=== PATIENT | male | born 1985 | race Caucasian/White ===

== ENCOUNTER 2022-01-24 20:01 | Inpatient (IN) | payer OTHER, BC ==
[~2022-01-24 20:01] MED LIST: Iopamidol-370 76% 500 ML 1 ML ONE
[2022-01-24] MEDS ORDERED: Ondansetron PF 4 MG/2 ML Vial ONE (20:06)
[2022-01-24] MEDS ORDERED: FENTANYL 50 MCG/ML 1 ML VIAL ONE ×2 (20:06→21:16)
[2022-01-24] MEDS ORDERED: Ketamine 50 MG/ML (10ML VIAL) ONE (20:14)
[2022-01-24] MEDS ORDERED: Naloxone HCl 2 mg/2 ml Syringe ONE (20:22)
[2022-01-24] MEDS ORDERED: Naloxone HCl 0.4 mg/ml Vial ONE (20:23)
[2022-01-24 20:49] LABS: #Basophils 0.1 thou/uL (0.0-0.2); #Eosinphils 0.4 thou/uL (0.0-0.7); #Lymphocytes 2.8 thou/uL (1.20-3.40); #Neutrophils 10.1 thou/uL (1.40-6.50); %Basophils 0.7 % (0.0-1.0); %Eosinophils 2.8 % (0.0-10.0); %Lymphocytes 19.5 % (21.0-51.0); %Monocytes 6.6 % (0.0-10.0); %Neutrophils 70.3 % (42.0-75.0); Hemoglobin 14.1 g/dL (14.0-18.0); Mean Corpuscular HGB CONC 33.4 g/dL (32.0-36.0); Mean Corpuscular Hemoglobin 30.7 pg (27.0-31.0); Mean Corpuscular Volume 91.8 fl (78.0-98.0); Mean Platelet Volume 7.4 fL (7.4-10.4); Platelet Count 314 10x3/uL (130-400); RBC Distribution Width 11.5 % (11.5-14.5); Red Blood Cell (RBC) Count 4.61 mill/uL (4.70-6.10); White Blood Cell (WBC) Count 14.3 10x3/uL (4.8-10.8)
[2022-01-24 20:56] LABS: Prothrombin Time 13.3 sec (12.0-14.7)
[2022-01-24 20:57] LABS: PTT 28.7 sec (22.9-36.1)
[2022-01-24 21:10] LABS: ALT (SGPT) 67 U/L (8-55); AST (SGOT) 38 U/L (5-34); Albumin 4.4 g/dL (3.5-5.0); Alkaline Phosphatase 51 U/L (40-110); Anion Gap 14 mmol/L (10-20); BUN (Urea Nitrogen) 10 mg/dL (8.9-20.6); Bilirubin, Total 0.5 mg/dL (0.2-1.2); Calc. Creatinine Clearance 0 mL/min (70-130); Calcium 8.4 mg/dL (7.8-10.44); Carbon Dioxide 22 mmol/L (22-29); Chloride 106 mmol/L (98-107); Estimated GFR 108; Globulin 2.6 g/dL (2.4-3.5); Glucose 115 mg/dL (70-105); Potassium 3.6 mmol/L (3.5-5.1); Sodium 138 mmol/L (136-145)
[2022-01-24] MEDS ORDERED: Cyclobenzaprine 10 MG TAB ONE (21:17)
[2022-01-24] MEDS ORDERED: Dextrose 5% in Water 1,000 ML IV PRN (21:53)
[2022-01-24] MEDS ORDERED: Dextrose 50% Abboject 50 ML SYRINGE SLOW IVP PRN (21:53)
[2022-01-24] MEDS ORDERED: Ondansetron ODT 4 MG TAB PO PRN (21:53)
[2022-01-24] MEDS ORDERED: Morphine 2 MG/ML VIAL SLOW IVP PRN (21:53)
[2022-01-24] MEDS ORDERED: Ondansetron PF 4 MG/2 ML Vial IVP PRN (21:53)
[2022-01-24] MEDS ORDERED: hydrALAZINE 20 MG/ML VIAL SLOW IVP PRN (21:53)
[2022-01-24] MEDS ORDERED: Ketorolac Tromethamine 30 MG/ML VIAL ONE (22:18)
[2022-01-24] MEDS ORDERED: traMADol HCl 50 MG TAB ONE (22:18)
[2022-01-24 22:20] LABS: SARS-CoV-2 NAA Rapid Test Not Detected (NotDetected)
[2022-01-24 22:38] LABS: Bacteria/HPF None Seen HPF (None Seen); Bilirubin Negative (Negative); Blood, Urine Trace (Negative); Clarity Clear (Clear); Glucose, Urine (Dipstick) Normal (Negative); Ketone, Urine Negative (Negative); Leukocyte Negative Leu/uL (Negative); Nitrite Negative (Negative); Protein, Urine (Dipstick) Negative (Neg-Trace); RBC/HPF 0-3 HPF (0-3); Specific Gravity, Urine 1.017 (1.002-1.036); Squamous Epithelial None Seen HPF (0-3); Urobilinogen Normal mg/dL (Less than 2); WBC/HPF 0-3 HPF (0-3)
[2022-01-24 23:52] VITALS: BMI 21.8
[2022-01-25] MEDS ORDERED: Morphine 4 MG/ML VIAL ONE (00:14)
[2022-01-25] MEDS ORDERED: Gabapentin 100 MG CAP PO SCH ×2 (00:45→06:00)
[2022-01-25] MEDS ORDERED: Ketorolac Tromethamine 30 MG/ML VIAL IVP SCH ×2 (00:45→06:00)
[2022-01-25] MEDS ORDERED: traMADol HCl 50 MG TAB PO SCH (00:45)
[2022-01-25] MEDS: Morphine 4 MG/ML VIAL SLOW IVP PRN ×2 (00:48→05:20)
[2022-01-25] MEDS: Acetaminophen 325 MG TAB PO SCH ×2 (01:34→04:47)
[2022-01-25] MEDS: Sodium Chloride 0.9% 1,000 ML IV SCH ×3 (01:38→15:07)
[2022-01-25] MEDS: traMADol HCl 50 MG TAB PO SCH ×3 (05:19→17:01)
[2022-01-25] MEDS: Cyclobenzaprine 10 MG TAB PO PRN ×2 (05:35→21:12)
[2022-01-25 05:45] LABS: #Eosinphils 0.1 thou/uL (0.0-0.7); #Lymphocytes 1.4 thou/uL (1.20-3.40); #Monocytes 1.2 thou/uL (0.11-0.59); %Basophils 0.3 % (0.0-1.0); %Eosinophils 0.6 % (0.0-10.0); %Neutrophils 77.2 % (42.0-75.0); Hemoglobin 13.5 g/dL (14.0-18.0); Mean Corpuscular HGB CONC 32.8 g/dL (32.0-36.0); Mean Corpuscular Hemoglobin 30.8 pg (27.0-31.0); Mean Corpuscular Volume 93.8 fl (78.0-98.0); Mean Platelet Volume 7.8 fL (7.4-10.4); Platelet Count 232 10x3/uL (130-400); RBC Distribution Width 11.7 % (11.5-14.5); Red Blood Cell (RBC) Count 4.39 mill/uL (4.70-6.10); White Blood Cell (WBC) Count 11.7 10x3/uL (4.8-10.8)
[2022-01-25 06:18] LABS: Anion Gap 14 mmol/L (10-20); BUN (Urea Nitrogen) 10 mg/dL (8.9-20.6); Calc. Creatinine Clearance 130 mL/min (70-130); Calcium 8.6 mg/dL (7.8-10.44); Carbon Dioxide 24 mmol/L (22-29); Chloride 100 mmol/L (98-107); Estimated GFR 117; Glucose 114 mg/dL (70-105); Magnesium 1.6 mg/dL (1.6-2.6); Phosphorus 4.6 mg/dL (2.3-4.7); Sodium 134 mmol/L (136-145)
[2022-01-25] MEDS ORDERED: CEFAZOLIN 2 GM in Sodium Chloride 0.9% 100 ML IVPB SCH (07:45)
[2022-01-25] MEDS ORDERED: Morphine 4 MG/ML VIAL SLOW IVP PRN (07:53)
[2022-01-25] MEDS ORDERED: Magnesium 2 GM/50 ML(in water) 2 GM in Premix Bag 1 BAG IVPB SCH ×2 (08:00→20:00)
[2022-01-25] MEDS ORDERED: Famotidine/PF 20 mg/2ml Vial ONE (08:23)
[2022-01-25] MEDS ORDERED: Promethazine HCl 25 MG/ML VIAL IVPB PRN ×2 (08:26→12:01)
[2022-01-25] MEDS ORDERED: Ondansetron HCl/PF 4 MG/2 ML Vial IVP PRN ×2 (08:26→12:01)
[2022-01-25] MEDS ORDERED: Promethazine HCl 25 MG/ML VIAL IM PRN ×2 (08:26→12:01)
[2022-01-25] MEDS ORDERED: fentaNYL PF 100 MCG/2 ML SYRINGE ONE ×2 (08:35→11:26)
[2022-01-25] MEDS ORDERED: Midazolam HCl 2 mg/2 ml Vial ONE (08:47)
[2022-01-25] MEDS ORDERED: CEFAZOLIN 2 GM VIAL ONE (08:55)
[2022-01-25] MEDS ORDERED: Sodium Chloride 0.9% 100 ML ONE (08:55)
[2022-01-25] MEDS ORDERED: Phenylephrine 10 MG/ML VIAL ONE (09:15)
[2022-01-25] MEDS ORDERED: PROPOFOL 200 MG/20 ML VIAL ONE (09:15)
[2022-01-25] MEDS ORDERED: Rocuronium Bromide 10 MG/ML (10ML VIAL) ONE (09:15)
[2022-01-25] MEDS ORDERED: Dexamethasone 20 MG/5 ML VIAL ONE (09:15)
[2022-01-25] MEDS ORDERED: Ketorolac Tromethamine 30 MG/ML VIAL ONE (09:15)
[2022-01-25] MEDS ORDERED: Ondansetron PF 4 MG/2 ML Vial ONE (09:15)
[2022-01-25] MEDS ORDERED: NEOSTIGMINE 3 MG/3 ML SYR 3 MG/3 ML SYRINGE ONE (09:15)
[2022-01-25] MEDS: Famotidine 20 MG TAB PO SCH ×2 (09:43→21:01)
[2022-01-25] MEDS: Polyethylene Glycol 3350 17 GM Packet PO SCH (09:43)
[2022-01-25] MEDS: Senokot S 8.6-50 MG TAB PO SCH ×2 (09:43→21:01)
[2022-01-25] MEDS: Acetaminophen 500 MG TAB PO SCH ×3 (09:43→21:01)
[2022-01-25] MEDS ORDERED: Meperidine HCl/PF 25 MG/ML VIAL SLOW IVP PRN (12:01)
[2022-01-25] MEDS ORDERED: FENTANYL 50 MCG/ML 1 ML VIAL ONE (12:22)
[2022-01-25] MEDS: Gabapentin 300 MG CAP PO SCH ×2 (14:52→21:01)
[2022-01-25 16:50] LABS: #Lymphocytes 0.8 thou/uL (1.20-3.40); #Monocytes 0.8 thou/uL (0.11-0.59); #Neutrophils 8.7 thou/uL (1.40-6.50); %Basophils 0.1 % (0.0-1.0); %Eosinophils 0.2 % (0.0-10.0); %Lymphocytes 7.4 % (21.0-51.0); %Monocytes 7.9 % (0.0-10.0); %Neutrophils 84.3 % (42.0-75.0); Hemoglobin 11.2 g/dL (14.0-18.0); Mean Corpuscular HGB CONC 34.4 g/dL (32.0-36.0); Mean Corpuscular Hemoglobin 31.2 pg (27.0-31.0); Mean Corpuscular Volume 90.7 fl (78.0-98.0); Mean Platelet Volume 7.3 fL (7.4-10.4); Platelet Count 236 10x3/uL (130-400); RBC Distribution Width 11.4 % (11.5-14.5); Red Blood Cell (RBC) Count 3.61 mill/uL (4.70-6.10); White Blood Cell (WBC) Count 10.4 10x3/uL (4.8-10.8)
[2022-01-25 16:57] LABS: INR-International Normal Ratio 1.1; PTT 31.7 sec (22.9-36.1); Prothrombin Time 14.3 sec (12.0-14.7)
[2022-01-25] MEDS: CEFAZOLIN 2 GM in Sodium Chloride 0.9% 100 ML IVPB SCH (17:03)
[2022-01-25 17:11] LABS: Anion Gap 14 mmol/L (10-20); BUN (Urea Nitrogen) 10 mg/dL (8.9-20.6); Calc. Creatinine Clearance 131 mL/min (70-130); Calcium 8.2 mg/dL (7.8-10.44); Carbon Dioxide 21 mmol/L (22-29); Chloride 104 mmol/L (98-107); Estimated GFR 117; Glucose 131 mg/dL (70-105); Lactic Acid 4.1 mmol/L (0.5-2.2); Magnesium 1.6 mg/dL (1.6-2.6); Phosphorus 2.6 mg/dL (2.3-4.7); Sodium 135 mmol/L (136-145)
[2022-01-25] MEDS ORDERED: Sodium Phosphate 30 MMOL in Sodium Chloride 0.9% 250 ML 250 ML IVPB SCH (18:00)
[2022-01-25] MEDS ORDERED: Lactated Ringer's 1,000 ML IV SCH (18:15)
[2022-01-26] MEDS: traMADol HCl 50 MG TAB PO SCH ×4 (00:58→18:13)
[2022-01-26] MEDS: CEFAZOLIN 2 GM in Sodium Chloride 0.9% 100 ML IVPB SCH (00:59)
[2022-01-26] MEDS: Acetaminophen 500 MG TAB PO SCH ×4 (00:59→20:54)
[2022-01-26] MEDS: Gabapentin 300 MG CAP PO SCH ×3 (05:23→20:55)
[2022-01-26 06:15] LABS: #Eosinphils 0.1 thou/uL (0.0-0.7); #Lymphocytes 1.8 thou/uL (1.20-3.40); #Monocytes 0.8 thou/uL (0.11-0.59); #Neutrophils 5.3 thou/uL (1.40-6.50); %Basophils 0.6 % (0.0-1.0); %Eosinophils 1.7 % (0.0-10.0); %Lymphocytes 22.1 % (21.0-51.0); %Monocytes 9.5 % (0.0-10.0); %Neutrophils 66.2 % (42.0-75.0); Hemoglobin 9.3 g/dL (14.0-18.0); Mean Corpuscular HGB CONC 33.9 g/dL (32.0-36.0); Mean Corpuscular Hemoglobin 31.2 pg (27.0-31.0); Mean Corpuscular Volume 92.2 fl (78.0-98.0); Mean Platelet Volume 7.3 fL (7.4-10.4); Platelet Count 205 10x3/uL (130-400); RBC Distribution Width 11.4 % (11.5-14.5); Red Blood Cell (RBC) Count 2.99 mill/uL (4.70-6.10); White Blood Cell (WBC) Count 8.1 10x3/uL (4.8-10.8)
[2022-01-26 06:23] LABS: Lactic Acid 3.6 mmol/L (0.5-2.2)
[2022-01-26 06:36] LABS: Anion Gap 14 mmol/L (10-20); BUN (Urea Nitrogen) 10 mg/dL (8.9-20.6); Calc. Creatinine Clearance 115 mL/min (70-130); Calcium 7.8 mg/dL (7.8-10.44); Carbon Dioxide 24 mmol/L (22-29); Chloride 102 mmol/L (98-107); Estimated GFR 106; Glucose 114 mg/dL (70-105); Magnesium 2.2 mg/dL (1.6-2.6); Phosphorus 2.8 mg/dL (2.3-4.7); Potassium 3.5 mmol/L (3.5-5.1); Sodium 136 mmol/L (136-145)
[2022-01-26] MEDS ORDERED: Lactated Ringer's 1,000 ML IV SCH (07:45)
[2022-01-26] MEDS ORDERED: Potassium Phosphate 15 MMOL in Sodium Chloride 0.9% 250 ML 250 ML IVPB SCH (08:00)
[2022-01-26] MEDS: Senokot S 8.6-50 MG TAB PO SCH ×2 (08:48→20:55)
[2022-01-26] MEDS: Polyethylene Glycol 3350 17 GM Packet PO SCH (08:48)
[2022-01-26] MEDS: Famotidine 20 MG TAB PO SCH ×2 (08:48→20:55)
[2022-01-26] MEDS: Lactated Ringer's 1,000 ML IV SCH (14:35)
[2022-01-26] MEDS: Ferrous Sulfate 325 MG TAB PO SCH (18:14)
[2022-01-26] MEDS: Ascorbic Acid 500 mg Chewable Tablet PO SCH (18:14)
[2022-01-27] MEDS: Lactated Ringer's 1,000 ML IV SCH ×2 (00:35→08:15)
[2022-01-27] MEDS: traMADol HCl 50 MG TAB PO SCH ×2 (00:35→05:19)
[2022-01-27] MEDS: Acetaminophen 500 MG TAB PO SCH ×3 (01:18→23:26)
[2022-01-27] MEDS: Gabapentin 300 MG CAP PO SCH (05:19)
[2022-01-27 06:48] LABS: #Eosinphils 0.1 thou/uL (0.0-0.7); #Lymphocytes 0.8 thou/uL (1.20-3.40); #Monocytes 0.9 thou/uL (0.11-0.59); #Neutrophils 7.2 thou/uL (1.40-6.50); %Basophils 0.5 % (0.0-1.0); %Eosinophils 1.2 % (0.0-10.0); %Lymphocytes 8.9 % (21.0-51.0); %Monocytes 9.9 % (0.0-10.0); %Neutrophils 79.5 % (42.0-75.0); Hemoglobin 7.8 g/dL (14.0-18.0); Mean Corpuscular HGB CONC 34.1 g/dL (32.0-36.0); Mean Corpuscular Hemoglobin 31.5 pg (27.0-31.0); Mean Corpuscular Volume 92.6 fl (78.0-98.0); Mean Platelet Volume 7.3 fL (7.4-10.4); Platelet Count 185 10x3/uL (130-400); RBC Distribution Width 11.3 % (11.5-14.5); Red Blood Cell (RBC) Count 2.47 mill/uL (4.70-6.10)
[2022-01-27 07:03] LABS: Lactic Acid 0.9 mmol/L (0.5-2.2)
[2022-01-27 07:09] LABS: Anion Gap 11 mmol/L (10-20); BUN (Urea Nitrogen) 7 mg/dL (8.9-20.6); Calc. Creatinine Clearance 153 mL/min (70-130); Carbon Dioxide 26 mmol/L (22-29); Chloride 101 mmol/L (98-107); Estimated GFR 123; Glucose 129 mg/dL (70-105); Phosphorus 3.3 mg/dL (2.3-4.7); Potassium 3.8 mmol/L (3.5-5.1); Sodium 134 mmol/L (136-145)
[2022-01-27 07:24] LABS: CK (CPK) 7266 U/L (30-200)
[2022-01-27] MEDS: Ferrous Sulfate 325 MG TAB PO SCH ×2 (08:14→18:36)
[2022-01-27] MEDS: Senokot S 8.6-50 MG TAB PO SCH ×2 (08:14→20:39)
[2022-01-27] MEDS: Polyethylene Glycol 3350 17 GM Packet PO SCH (08:15)
[2022-01-27] MEDS: Famotidine 20 MG TAB PO SCH ×2 (08:15→20:39)
[2022-01-27] MEDS: Ascorbic Acid 500 mg Chewable Tablet PO SCH ×2 (08:15→18:36)
[2022-01-27] MEDS ORDERED: traMADol HCl 50 MG TAB PO PRN (11:39)
[2022-01-27] MEDS: Sodium Chloride 0.9% 1,000 ML IV SCH ×2 (11:59→22:55)
[2022-01-27] MEDS ORDERED: traMADol HCl 50 MG TAB PO SCH (12:00)
[2022-01-27] MEDS ORDERED: Acetaminophen/Codeine 30-300mg Tablet PO PRN (14:11)
[2022-01-27] MEDS: Gabapentin 100 MG CAP PO SCH ×2 (14:24→22:54)
[2022-01-27] MEDS: Acetaminophen/Codeine 30-300mg Tablet PO SCH ×2 (14:25→20:39)
[2022-01-27] MEDS: Acetaminophen 325 MG TAB PO SCH ×2 (14:25→20:38)
[2022-01-27 15:15] LABS: #Basophils 0.1 thou/uL (0.0-0.2); #Eosinphils 0.2 thou/uL (0.0-0.7); #Lymphocytes 1.2 thou/uL (1.20-3.40); #Monocytes 0.8 thou/uL (0.11-0.59); %Basophils 0.6 % (0.0-1.0); %Eosinophils 2.1 % (0.0-10.0); %Lymphocytes 12.6 % (21.0-51.0); %Monocytes 8.3 % (0.0-10.0); %Neutrophils 76.5 % (42.0-75.0); Hemoglobin 8.2 g/dL (14.0-18.0); Mean Corpuscular HGB CONC 33.5 g/dL (32.0-36.0); Mean Corpuscular Volume 92.5 fl (78.0-98.0); Mean Platelet Volume 7.2 fL (7.4-10.4); Platelet Count 188 10x3/uL (130-400); RBC Distribution Width 11.1 % (11.5-14.5); Red Blood Cell (RBC) Count 2.65 mill/uL (4.70-6.10); White Blood Cell (WBC) Count 9.1 10x3/uL (4.8-10.8)
[2022-01-27] MEDS: Cyclobenzaprine 10 MG TAB PO PRN (20:42)
[2022-01-27] MEDS ORDERED: Enoxaparin Sodium 40 MG/0.4 ML SYRINGE SC SCH (21:00)
[2022-01-28] MEDS: Acetaminophen/Codeine 30-300mg Tablet PO SCH ×3 (03:33→15:22)
[2022-01-28] MEDS: Acetaminophen 325 MG TAB PO SCH ×3 (03:33→15:21)
[2022-01-28] MEDS: Cyclobenzaprine 10 MG TAB PO PRN ×2 (05:23→15:25)
[2022-01-28] MEDS: Gabapentin 100 MG CAP PO SCH ×2 (05:23→15:25)
[2022-01-28 06:44] LABS: #Eosinphils 0.5 thou/uL (0.0-0.7); #Lymphocytes 1.1 thou/uL (1.20-3.40); #Monocytes 0.7 thou/uL (0.11-0.59); #Neutrophils 5.5 thou/uL (1.40-6.50); %Basophils 0.5 % (0.0-1.0); %Eosinophils 6.6 % (0.0-10.0); %Lymphocytes 13.8 % (21.0-51.0); %Neutrophils 70.1 % (42.0-75.0); Hemoglobin 7.8 g/dL (14.0-18.0); Mean Corpuscular HGB CONC 34.6 g/dL (32.0-36.0); Mean Corpuscular Hemoglobin 32.2 pg (27.0-31.0); Mean Platelet Volume 7.3 fL (7.4-10.4); Platelet Count 242 10x3/uL (130-400); RBC Distribution Width 11.4 % (11.5-14.5); Red Blood Cell (RBC) Count 2.44 mill/uL (4.70-6.10); White Blood Cell (WBC) Count 7.9 10x3/uL (4.8-10.8)
[2022-01-28 07:09] LABS: Anion Gap 11 mmol/L (10-20); BUN (Urea Nitrogen) 7 mg/dL (8.9-20.6); Calc. Creatinine Clearance 162 mL/min (70-130); Calcium 8.1 mg/dL (7.8-10.44); Carbon Dioxide 25 mmol/L (22-29); Chloride 103 mmol/L (98-107); Estimated GFR 125; Glucose 112 mg/dL (70-105); Phosphorus 3.1 mg/dL (2.3-4.7); Sodium 135 mmol/L (136-145)
[2022-01-28 07:21] LABS: CK (CPK) 4798 U/L (30-200)
[2022-01-28] MEDS ORDERED: PHOS-NAK 1 PKT PACK PO SCH (08:00)
[2022-01-28] MEDS: Polyethylene Glycol 3350 17 GM Packet PO SCH (08:42)
[2022-01-28] MEDS: Famotidine 20 MG TAB PO SCH (08:43)
[2022-01-28] MEDS: Senokot S 8.6-50 MG TAB PO SCH (08:43)
[2022-01-28] MEDS: Ascorbic Acid 500 mg Chewable Tablet PO SCH (08:43)
[2022-01-28] MEDS: Ferrous Sulfate 325 MG TAB PO SCH (08:43)
[2022-01-28 11:58] VITALS: BP 114/70; TEMP 98.3
== END 2022-01-28 16:27 | disposition home or self-care (01) | DRG 956 ==
LOC: ERS 20:01 → SURG B 21:53
PROVIDERS: ADMIT Surgery; ATTEND Surgery
PROC: 0QS806Z Reposition Right Femoral Shaft with Intramedullary Internal Fixation Device, Open Approach (ICD-10-PCS; principal; 2022-01-25)
PROC: 0QSG04Z Reposition Right Tibia with Internal Fixation Device, Open Approach (ICD-10-PCS; 2022-01-25)
DX: S82.141A Displaced bicondylar fracture of right tibia, initial encounter for closed fracture (principal); S72.301A Unspecified fracture of shaft of right femur, initial encounter for closed fracture; T79.1XXA Fat embolism (traumatic), initial encounter; D62 Acute posthemorrhagic anemia; T79.6XXA Traumatic ischemia of muscle, initial encounter; F90.9 Attention-deficit hyperactivity disorder, unspecified type; G89.11 Acute pain due to trauma; R00.0 Tachycardia, unspecified; Z20.822 Contact with and (suspected) exposure to COVID-19; V40.5XXA Car driver injured in collision with pedestrian or animal in traffic accident, initial encounter
CPT/HCPCS: 27502; 36415; 70450; 71045; 71260; 72125; 72170; 74177; 75635; 80048; 80053; 81001; 82550; 83605; 83735; 84100; 85025; 85610; 85730; 86850; 86900; 86901; 93970; 94640; 96374; 96375; 96376; 99156; C1713; G0390; J1100; J1650; J1885; J2250; J2270; J2310; J2370; J2405; J2704; J3010; J3475; J3490; J7050; J7120; J7620; J7643; Q9967; S0028